=== PATIENT | male | born 1960 | race Caucasian/White ===

== ENCOUNTER 2021-11-22 05:42 | Observation (INO) | payer OTHER, SELFPAY ==
[2021-11-22 08:14] LABS: SARS-CoV-2 NAA Rapid Test DETECTED (NotDetected)
[2021-11-22 08:30] VITALS: BMI 25.7
[2021-11-22] MEDS ORDERED: Aspirin 325 MG TAB PO SCH (09:30)
[2021-11-22] MEDS ORDERED: Ondansetron PF 4 MG/2 ML Vial IVP PRN (10:20)
[2021-11-22] MEDS ORDERED: Acetaminophen 325 MG TAB PO PRN (10:20)
[2021-11-22] MEDS ORDERED: diphenhydrAMINE 50 MG/ML VIAL IVP PRN (10:22)
[2021-11-22] MEDS ORDERED: Amlodipine 10 MG TAB PO SCH (10:30)
[2021-11-22] MEDS ORDERED: FLU VACC QS2021-22(6MOS UP)/PF 60 MCG/0.5 ML SYRINGE IM ONE (14:00)
[2021-11-22] MEDS: Famotidine/PF 20 mg/2ml Vial SLOW IVP SCH (19:39)
[2021-11-23 05:00] LABS: #Lymphocytes 1.3 thou/uL (1.20-3.40); %Basophils 0.1 % (0.0-1.0); %Eosinophils 0.2 % (0.0-10.0); %Lymphocytes 17.2 % (21.0-51.0); %Monocytes 13.8 % (0.0-10.0); %Neutrophils 68.8 % (42.0-75.0); Hemoglobin 13.5 g/dL (14.0-18.0); Mean Corpuscular HGB CONC 33.4 g/dL (32.0-36.0); Mean Corpuscular Hemoglobin 33.4 pg (27.0-31.0); Mean Corpuscular Volume 99.7 fL (78.0-98.0); Mean Platelet Volume 8.2 fL (7.4-10.4); Platelet Count 328 thou/uL (130-400); RBC Distribution Width 11.3 % (11.5-14.5); Red Blood Cell (RBC) Count 4.04 mill/uL (4.70-6.10); White Blood Cell (WBC) Count 7.3 thou/uL (4.8-10.8)
[2021-11-23 05:21] LABS: Anion Gap 9 mmol/L (10-20); BUN (Urea Nitrogen) 14 mg/dL (8.4-25.7); Calc. Creatinine Clearance 119 mL/min (70-130); Calcium 9.2 mg/dL (7.8-10.44); Carbon Dioxide 26 mmol/L (23-31); Chloride 102 mmol/L (98-107); Glucose 110 mg/dL (80-115); Potassium 4.3 mmol/L (3.5-5.1); Sodium 133 mmol/L (136-145)
[2021-11-23 07:22] VITALS: BP 122/69; TEMP 97.6
[2021-11-23] MEDS ORDERED: predniSONE 20 MG TAB PO SCH (08:00)
[2021-11-23] MEDS: Famotidine/PF 20 mg/2ml Vial SLOW IVP SCH (08:34)
[2021-11-23] MEDS ORDERED: Amlodipine 10 MG TAB PO SCH (09:00)
[2021-11-23] MEDS ORDERED: Aspirin 325 MG TAB PO SCH (09:00)
== END 2021-11-23 10:25 | disposition home or self-care (01) ==
LOC: ERS 05:42 → SUATTDRO 05:42 → 2SW 06:12
PROVIDERS: ADMIT Internal Medicine; ATTEND Physician Assistant Medical
DX: T78.3XXA Angioneurotic edema, initial encounter (principal); T46.4X5A Adverse effect of angiotensin-converting-enzyme inhibitors, initial encounter; I10 Essential (primary) hypertension; U07.1 COVID-19; Z79.82 Long term (current) use of aspirin; Z79.899 Other long term (current) drug therapy; Z88.8 Allergy status to other drugs, medicaments and biological substances; Z95.5 Presence of coronary angioplasty implant and graft
CPT/HCPCS: 36415; 80048; 85025; 96374; 96376; 99285; G0378; J7512; S0028; U0002